=== PATIENT | female | born 1990 | race Caucasian/White ===

== ENCOUNTER 2021-10-29 04:33 | Emergency (ER) | payer OTHER ==
[~2021-10-29] VITALS: Ht 165.1 cm; Wt 82.7 kg
[2021-10-29] MEDS ORDERED: SYNT150T PO (04:41)
[2021-10-29] MEDS ORDERED: UNIS25TA3 PO (04:42)
[2021-10-29] MEDS ORDERED: PYRI25TA3 PO (04:43)
[2021-10-29] MEDS ORDERED: OMEP10CASR PO (04:43)
[2021-10-29] MEDS ORDERED: FAMO20TA PO (04:44)
[2021-10-29] MEDS ORDERED: LIDOCAINE 1% MDV 20ML VIAL SC ONE (08:00)
[2021-10-29] MEDS ORDERED: LIDO1CRE2 TOP (10:14)
[2021-10-29 10:24] VITALS: BP 131/93
== END 2021-10-29 10:25 | disposition home or self-care (01) ==
LOC: M ED 04:33
DX: O22.43 Hemorrhoids in pregnancy, third trimester (principal); Z3A.32 32 weeks gestation of pregnancy

== ENCOUNTER → 2022-08-03 | Outpatient (CLI) | payer OTHER ==
[~2022-08-03] MED LIST: COLA100C5 PO; FAMO20TA PO; IBUP-1022 PO; LEVO150T7 PO; LIDO1CRE2 TOP; OMEP10CASR PO; PRENCHW PO; PYRI25TA3 PO; SYNT150T PO; UNIS25TA3 PO
== END ==
LOC: M WUC 11:33
PROVIDERS: ATTEND Physician Assistant
DX: S93.402A Sprain of unspecified ligament of left ankle, initial encounter (principal); S82.832A Other fracture of upper and lower end of left fibula, initial encounter for closed fracture; Y92.9 Unspecified place or not applicable; Y93.9 Activity, unspecified; Y99.9 Unspecified external cause status; X58.XXXA Exposure to other specified factors, initial encounter; S92.355A Nondisplaced fracture of fifth metatarsal bone, left foot, initial encounter for closed fracture

== ENCOUNTER → 2023-07-02 | Outpatient (CLI) | payer OTHER ==
[2023-07-02 15:08] LABS: HEMOGLOBIN 11.2 g/dl (12.0-15.5); MEAN CORPUSCULAR HEMOGLOBIN 28.8 pg (27.0-33.0); MEAN CORPUSCULAR HGB CONC 32.9 g/dl (32.0-36.5); MEAN CORPUSCULAR VOLUME 87.4 fl (80.0-96.0); PLATELET COUNT, AUTOMATED 261 10^3/uL (150-450); RED BLOOD COUNT 3.89 10^6/uL (4.00-5.40); WHITE BLOOD COUNT 10.9 10^3/uL (4.0-10.0)
== END ==
LOC: M LAB 12:57
PROVIDERS: ATTEND Obstetrics & Gynecology Obstetrics
DX: Z36.9 Encounter for antenatal screening, unspecified (principal)

== ENCOUNTER → 2023-12-17 | Outpatient (REF) | payer OTHER | LOC: M LAB REF 16:04 | PROVIDERS: ATTEND Internal Medicine Endocrinology, Diabetes & Metabolism | DX: E04.1 Nontoxic single thyroid nodule (principal) ==